=== PATIENT | male | born 1995 | race Caucasian/White ===

== ENCOUNTER 2025-01-11 13:55 | Emergency (ER) | payer OTHER ==
[~2025-01-11] VITALS: Ht 185.4 cm; Wt 102.0 kg
--- NOTE | 2025-01-11 14:07 | Physician Documentation ---
History of Present Illness ~ Stated Complaint: FINGER LAC WC Time Seen by MD: 14:32 HPI This is a 29-year-old male who presents with a laceration to the distal tip of his left 4th finger after a tool he was using to set a spring came lose striking him on the finger. Patient reports Tdap is up-to-date. Patient reports no other injuries. Medication Reconciliation Allergies: Coded Allergies: No Known Allergies (Unverified , 01/11/25) Scheduled Cephalexin*Monohydrate* (Keflex*), 1 CAP PO QID Past Medical History Past Medical History: No Pertinent History Review of Systems ROS As stated above in the HPI, otherwise all systems are reviewed and negative. Physical Exam Vital Signs: Temperature: 96.3, Heart Rate: 80, Respiratory Rate: 15, BP: 112/63, Pulse Oximetry: 98, Weight: 102 Physical Exam VITALS: Reviewed and as above. GENERAL: Alert, nontoxic appearing, no apparent distress. RESPIRATORY: No increased work of breathing, no respiratory distress, speaking in full clear sentences CV: Brisk capillary refill to fingers of left hand SKIN: Laceration to the distal tip of left 4th finger extending from dorsal surface through distal surface to plantar surface, no visible foreign body NEURO: Sensation intact to fingers of left hand Procedures Laceration/Wound Repair Laceration : Location: Distal tip of left 4th finger Length (cm): 3 Anesthesia: Lidocaine (Digital block) Volume Anesthetic (mls): 7 Prep: irrigated by nurse, irrigated by physician Irrigated w/ Saline (mls): 500 Margins: revised Foreign Body: not identified Repaired: skin Wound Repaired With: sutures Suture Size/Type: 4-0 Number of Superficial Sutures: 11 Layer Closure?: No Dressing Applied: simple, bacitracin, gauze, non-adherent Splint Applied?: Yes Sling Applied?: No Tolerated Procedure Well?: yes, no complications Procedure Note Wound repair by Medical student with close observation by myself Nail Trephination Location: Left 4th finger Method of Drainage: 18 gauge needle Sterile Dressing Applied?: Yes Finger Splint?: Yes Tolerated Procedure Well?: yes, no complications Procedure Note Procedure by medical student with close observation by myself Progress Results/Orders Results/Orders Orders - MYRON HUMPHREY Laceration/I&D Tray Set Up (01/11/25 14:38) Wound Care Orders (01/11/25 14:38) Completed Orders - MYRON HUMPHREY [employer] Lidocaine 1% 30ml Vial (Xylocaine 1% Via (01/11/25 14:40) Ceftriaxone 500 Im W/Lidocaine (Rocephin (01/11/25 15:10) Vital Signs 01/11/25 01/11/25 14:09 17:40 Temp 96.3 Pulse 80 77 Resp 15 16 B/P (MAP) 112/63 138/86 Pulse Ox 98 98 EKG/XRAY/CT/US/VASC/MRI Bone/Soft Tissue X-Ray (Ext.) : Additional Comment Exam: FINGER(S) CLINICAL INDICATION: Finger Pain TECHNIQUE: DI FINGER(S) left Comparison: None FINDINGS/IMPRESSION: : Comminuted fracture of the distal tuft of the 4th digit with associated soft- tissue laceration. Electronically Signed by:VILLA HARRISON MD Date & Time: 01/11/251501 Dictated by: VILLA HARRISON MD Dictation date and time: 01/11/251501 I have reviewed and agree with the radiology report. I have reviewed and interpreted the imaging as: Comminuted fracture of distal 4th digit Medical Decision Making Additional information obtaine: N/A Findings This 29-year-old male presented with laceration to his left 4th digit caused by a tool forcefully striking him in the tip of the finger, physical exam significant for laceration extending from dorsal surface through distal surface through palmar surface, given force of injury imaging was obtained demonstrating comminuted tuft fracture of left 4th digit, physical exam did not demonstrate evidence of retained foreign body in the finger is neurovascularly intact. Wound was thoroughly irrigated by nursing. Patient has had Tdap last six months. The laceration was repaired, nail trephinated, and 1st dose of antibiotics provided by IM. Patient is otherwise well-appearing physical exam benign and appropriate for outpatient follow up, patient discharged on course of oral antibiotics and discharged to follow up with primary care provider for follow up, patient provided home care instructions return to care precautions follow up instructions he verbalized understanding of. Differential Dx:Considerations: Include: Abrasion, Avulsion, Contusion, Laceration, Fracture, Hematoma, Neurovascular injury, Retained foreign body, Other (Open fracture) Departure Time of Disposition: 17:12 Disposition: 01 HOME / SELF CARE / HOMELESS Impression: Primary Impression: Open fracture of tuft of distal phalanx of finger Additional Impression: Laceration of left ring finger Qualified Codes: S61.315A - Laceration without foreign body of left ring finger with damage to nail, initial encounter Condition: Improved Discharge Instructions: Laceration Care, Adult Additional Instructions: Keep the area clean dry and covered, wear the provided splint for comfort. Please return to your choice of medical provider (including primary care, urgent care, or returning to an emergency department) in 10 days for evaluation for suture removal. Please take antibiotics as prescribed. You may use ibuprofen and or Tylenol as needed for pain as directed by [id number] packaging, you may combine these two medications for increased effect. Please follow up with your primary care provider in the next few days. Please return to the emergency department for any new or worsening concerning symptoms. Referrals: NO PRIMARY CARE PROVIDER (PCP) Prescriptions Cephalexin*Monohydrate* (Keflex*) 500 Mg Capsule 1 CAP PO QID for 10 Days, #40 CAP Prov: MYRON HUMPHREY 01/11/25 Education Educated: Patient Educated regarding: diagnosis, treatment, prognosis, need for follow up Signature Scribe Signature: No scribe Attestation: The note accurately reflects work and decisions made by me.DERRICK Cerda 01/11/25 17:17 USMAN ALLEN NP Jan 11, 2025 14:07 MYRON HUMPHREY Jan 11, 2025 14:44
--- NOTE | 2025-01-11 15:04 | RADIOLOGY REPORT ---
CLINICAL INDICATION: Finger Pain TECHNIQUE: DI FINGER(S) left Comparison: None FINDINGS/IMPRESSION: : Comminuted fracture of the distal tuft of the 4th digit with associated soft- tissue laceration.
[2025-01-11] MEDS: CefTRIAXone 500MG IM Kit w/LIDOcaine IM ONE (15:10)
[2025-01-11] MEDS: LIDOcaine 1% 30ml preserv. free vial IJ ONE (15:15)
[2025-01-11] MEDS ORDERED: CEPH-585 PO (17:12)
[2025-01-12 02:43] VITALS: BP 112/63; PULSE 80; RESP 15; TEMP 96.3; O2SAT 98
== END 2025-01-11 17:42 | disposition home or self-care (01) ==
LOC: ER 13:55
DX: S62.635A Displaced fracture of distal phalanx of left ring finger, initial encounter for closed fracture (principal); S61.315A Laceration without foreign body of left ring finger with damage to nail, initial encounter; W22.8XXA Striking against or struck by other objects, initial encounter; Y93.89 Activity, other specified; Y92.89 Other specified places as the place of occurrence of the external cause; Y99.8 Other external cause status
CPT/HCPCS: 11740; 29130; 73140; 96372; 99284; A6222; J0696; J7030; 99283; A6449

== ENCOUNTER 2025-01-20 12:41 | Emergency (ER) | payer OTHER ==
[~2025-01-20] VITALS: Ht 182.9 cm; Wt 106.8 kg
[~2025-01-20 12:41] MED LIST: CEPH-585 PO
[2025-01-20 12:45] VITALS: BP 110/80; TEMP 98
--- NOTE | 2025-01-20 14:19 | Physician Documentation ---
History of Present Illness ~ Chief Complaint: Suture Removal Stated Complaint: SUTURE REMOVAL Time Seen by MD: 13:55 HPI 29-year-old male presents to the ED with a complaint of the prior laceration that has repaired the sutures nine days ago he is requesting to have his sutures removed denies any increased pain swelling redness or drainage Placed On: Jan 20, 2025 Tetanus Within 5 Years: No Medication Reconciliation Allergies: Coded Allergies: No Known Allergies (Unverified , 01/20/25) Scheduled Cephalexin*Monohydrate* (Keflex*), 1 CAP PO QID Past Medical History Past Medical History: No Pertinent History Review of Systems All Other Systems at this time: Reviewed and Negative ROS As stated above in the HPI, otherwise all systems are reviewed and negative. Physical Exam Vital Signs: Temperature: 98.0, Source: Temporal, Heart Rate: 88, Respiratory Rate: 18, BP: 110/80, Pulse Oximetry: 96, Weight: 106.800 Oxygen Flow Rate: 0 Physical Exam General: Alert, no apparent distress. HEENT: PERRL, EOMI, no injection, moist mucous membranes. Extremities: Normal range of motion, no deformity. Approximated and well healed laceration with sutures in place on the left index finger Neurologic: Oriented x4. Psychiatric: Normal mood and affect. Skin: Normal color, warm and dry. No edema, no ecchymosis. Progress Results/Orders Results/Orders Vital Signs 01/20/25 01/20/25 12:45 15:04 Temp 98.0 Pulse 88 65 Resp 18 18 B/P (MAP) 110/80 Pulse Ox 96 98 O2 Flow Rate 0 Medical Decision Making Additional information obtaine: old records Findings nursing staffremoved sutures without difficulty .patient tolerated procedure well Differential Dx:Considerations: Include: Cellulitis, Suture removal, Wound dehiscence, Other Departure Disposition: 01 HOME / SELF CARE / HOMELESS Impression: Primary Impression: Laceration Condition: Improved Discharge Instructions: Suture Removal, Care After Referrals: NO PRIMARY CARE PROVIDER (PCP) Signature Scribe Signature: g Attestation: Scribed for Cain Tucker [employer] by Cain Wilde NP . 01/20/25 14:19 CAIN TUCKER NP Jan 20, 2025 14:19
[2025-01-20 15:04] VITALS: PULSE 65; RESP 18; O2SAT 98
== END 2025-01-20 15:07 | disposition home or self-care (01) ==
LOC: ER 12:41
DX: S61.211D Laceration without foreign body of left index finger without damage to nail, subsequent encounter (principal); X58.XXXD Exposure to other specified factors, subsequent encounter
CPT/HCPCS: 99282